=== PATIENT | female | born 1935 | race Caucasian/White ===

== ENCOUNTER 2018-06-08 16:26 | Outpatient (CLI) | payer MEDICARE ==
--- NOTE | 2018-06-08 18:21 | RAD ---
LEFT HIP TWO VIEWS: 06/08/18 INDICATION: Pain of left hip. FINDINGS: There is obliteration of the joint spaces of the left hip without significant osteophytosis. There is mild subchondral sclerosis and cyst formation. Scattered degenerative change of the imaged pelvis pr esent. IMPRESSION: Prominent joint space narrowing of the left hip. No significant osteophytosis. Inflammatory arthropat hy is suggested on the basis of imaging findings. Correlate clinically. POS: C
--- NOTE | 2018-06-08 18:24 | RAD ---
RIGHT HIP TWO VIEWS: 06/08/18 INDICATION: Pain right hip. No prior comparison. FINDINGS: There is obliteration of joint space without significant osteophytosis. There is mild subchondral scl erosis and degenerative cyst formation. Scattered degenerative change of the pelvis is seen. There ar e metallic sutures overlying the pelvis. IMPRESSION: Prominent joint space loss without significant bone forming component and therefore an inflammatory a rthropathy is favored. Recommend clinical correlation in this regard. No pathologic fracture. POS: C
== END 2018-06-08 16:27 | disposition home or self-care (01) ==
LOC: RAD 16:26
PROVIDERS: ATTEND Internal Medicine Rheumatology
DX: M25.551 Pain in right hip (principal); M25.552 Pain in left hip; M16.12 Unilateral primary osteoarthritis, left hip

== ENCOUNTER 2018-10-13 12:59 | Outpatient (CLI) | payer MEDICARE ==
--- NOTE | 2018-10-13 13:45 | RAD ---
EXAM: 3 views of the lumbosacral spine HISTORY: Low back pain COMPARISON: None FINDINGS: 3 views of the lumbosacral spine shows normal height and alignment of the vertebral bodies without fracture or subluxation. Alignment is unchanged with flexion and extension. There is intervertebral disc space narrowing at L4/5. Small osteophytes are seen throughout the lumbar spine. Posterior facet arthrosis is seen in the lower lumbosacral spine. Vascular calcifications are seen in the aorta. IMPRESSION: No significant lumbar spine abnormality.
--- NOTE | 2018-10-13 14:39 | MRI ---
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 Large bilateral acetabular osteophytes. Osseous remodeling of both femoral heads. Large subcortical cysts of both femoral heads. There is intraosseous cyst formation extending into both ileum Mild stress edema of both femoral necks and intertrochanteric portions of both femurs. Mild degenerative changes of pubic symphysis. Severe degenerative changes lower lumbar spine. SI join ts unremarkable. Sacrum is intact. Labrum: There is maceration of both labrum with no normal labral tissue remaining. Soft tissues: There is a large bilateral joint effusions, degenerative in nature, with extensive syno vitis. The hamstring tendons demonstrate high-grade undersurface tearing of both the common hamstring and se mimembranosus tendons from both ischial tuberosities. There is also high-grade partial tearing of both the right and left radius medial tendons. Intrapelvic soft tissues are unremarkable. Impression: Severe degenerative changes of both hips with complete cartilage loss, maceration of the labrum, articular surface remodeling, and large subcortical cysts. Evaluation for bilateral hip arthroplasty is recommended.
== END 2018-10-13 13:00 | disposition home or self-care (01) ==
LOC: SCSMRI 12:59
PROVIDERS: ATTEND Anesthesiology Pain Medicine
DX: M87.059 Idiopathic aseptic necrosis of unspecified femur (principal); M43.16 Spondylolisthesis, lumbar region; M16.0 Bilateral primary osteoarthritis of hip
CPT/HCPCS: 72100; 72195

== ENCOUNTER 2018-11-17 11:51 | Outpatient (CLI) | payer MEDICARE ==
[2018-11-17 14:21] LABS: #Basophils 0.1 thou/uL (0.0-0.2); #Eosinphils 0.4 thou/uL (0.0-0.7); #Lymphocytes 1.9 thou/uL (1.20-3.40); #Monocytes 0.9 thou/uL (0.11-0.59); #Neutrophils 7.6 thou/uL (1.40-6.50); %Basophils 0.9 % (0.0-1.0); %Eosinophils 3.4 % (0.0-10.0); %Lymphocytes 17.1 % (21.0-51.0); %Monocytes 8.5 % (0.0-10.0); %Neutrophils 70.1 % (42.0-75.0); Hemoglobin 13.4 g/dL (12.0-16.0); Mean Corpuscular HGB CONC 32.8 g/dL (32.0-36.0); Mean Corpuscular Hemoglobin 31.5 pg (27.0-31.0); Mean Corpuscular Volume 96.2 fL (78.0-98.0); Mean Platelet Volume 7.2 fL (7.4-10.4); Platelet Count 282 thou/uL (130-400); RBC Distribution Width 11.6 % (11.5-14.5); Red Blood Cell (RBC) Count 4.25 mill/uL (4.20-5.40); White Blood Cell (WBC) Count 10.9 thou/uL (4.8-10.8)
[2018-11-17 14:29] LABS: PTT 28.7 SEC (22.9-36.1); Prothrombin Time 13.4 SEC (12.0-14.7)
[2018-11-17 14:32] LABS: Bilirubin Negative (Negative); Blood, Urine Negative (Negative); Clarity CLEAR (Clear); Glucose, Urine (Dipstick) Negative (Negative); Leukocyte Negative (Negative); Nitrite Negative (Negative); Protein, Urine (Dipstick) Negative (Neg-Trace); Specific Gravity, Urine 1.005 (1.002-1.036); Urobilinogen 0.2 mg/dL (0.2-1.0); pH, Urine 5.5 (5.0-9.0)
[2018-11-17 14:43] LABS: Anion Gap 16 mmol/L (10-20); BUN (Urea Nitrogen) 25 mg/dL (9.8-20.1); Calc. Creatinine Clearance 0 mL/min (70-130); Calcium 8.9 mg/dL (7.8-10.44); Carbon Dioxide 24 mmol/L (23-31); Chloride 102 mmol/L (98-107); Estimated GFR-MDRD 83; Glucose 87 mg/dL (83-110); Potassium 4.2 mmol/L (3.5-5.1); Sodium 138 mmol/L (136-145)
[2018-11-17 15:00] LABS: Bacteria/HPF None Seen HPF (None Seen); Hyaline Casts/LPF NONE SEEN LPF (0-3 Hyaline); RBC/HPF None Seen HPF (0-3); Squamous Epithelial None Seen HPF (0-3); WBC/HPF None Seen HPF (0-3)
== END 2018-11-17 11:52 | disposition home or self-care (01) ==
LOC: LABBT 11:51
PROVIDERS: ATTEND Orthopaedic Surgery
DX: Z01.818 Encounter for other preprocedural examination (principal); M16.0 Bilateral primary osteoarthritis of hip
CPT/HCPCS: 80048; 81001; 85025; 85610; 85730; 87081; 93005; 93010

== ENCOUNTER 2018-11-17 12:30 | Inpatient (IN) | payer MEDICARE ==
[2018-11-29] MEDS ORDERED: Tranexamic Acid 1,000 MG/10 ML VIAL ONE (08:25)
[2018-11-29] MEDS ORDERED: Sodium Chloride 0.9% 100 ML ONE (08:25)
[2018-11-29] MEDS ORDERED: Zolpidem Tartrate 5 MG TAB PO PRN ×2 (09:09→10:30)
[2018-11-29] MEDS ORDERED: diphenhydrAMINE 25 MG CAP PO PRN ×2 (09:09→10:30)
[2018-11-29] MEDS ORDERED: Fentanyl 100 MCG/2 ML VIAL SLOW IVP PRN (09:09)
[2018-11-29] MEDS ORDERED: HYDROcodone/Acetaminophen 10/325 mg Tablet PO PRN (09:09)
[2018-11-29] MEDS ORDERED: Promethazine HCl 25 MG/ML VIAL IM PRN ×3 (09:09→12:23)
[2018-11-29] MEDS ORDERED: Acetaminophen 325 MG TAB PO PRN (09:09)
[2018-11-29] MEDS ORDERED: Ondansetron PF 4 MG/2 ML Vial IVP PRN ×2 (09:09→10:30)
[2018-11-29] MEDS ORDERED: Fentanyl 100 MCG/2 ML VIAL ONE ×2 (09:32→09:42)
[2018-11-29] MEDS ORDERED: Midazolam HCl 2 mg/2 ml Vial ONE (09:42)
[2018-11-29] MEDS ORDERED: Naloxone HCl 0.4 mg/ml Vial IVP PRN (10:30)
[2018-11-29] MEDS ORDERED: Naloxone HCl 0.4 mg/ml Vial IV PRN (10:30)
[2018-11-29] MEDS ORDERED: traMADol HCl 50 MG TAB PO PRN ×2 (10:30)
[2018-11-29] MEDS ORDERED: diphenhydrAMINE 50 MG/ML VIAL IVP PRN (10:30)
[2018-11-29] MEDS ORDERED: Hydrocerin (Eucerin) Cream 120 gm Jar TOP PRN (10:30)
[2018-11-29] MEDS ORDERED: diphenhydrAMINE 50 MG/ML VIAL IM PRN (10:30)
[2018-11-29] MEDS ORDERED: Promethazine HCl 25 MG SUPP PR PRN (10:30)
[2018-11-29] MEDS ORDERED: Bupivacaine 0.25% 10 ML VIAL EPIDURAL PRN (10:30)
[2018-11-29] MEDS ORDERED: HYDROcodone/Acetaminophen 5/325 mg Tablet PO PRN (10:30)
[2018-11-29] MEDS ORDERED: Bupivacaine/Epinephrine 0.25% 30 ML VIAL ONE (11:09)
[2018-11-29] MEDS ORDERED: Ondansetron HCl/PF 4 MG/2 ML Vial IVP PRN (12:23)
[2018-11-29] MEDS ORDERED: Promethazine HCl 25 MG/ML VIAL SLOW IVP PRN (12:23)
--- NOTE | 2018-11-29 13:03 | RAD ---
Radiograph right hip 2 views HISTORY: Status post surgery FINDINGS: Metallic acetabular prosthesis articulates with metallic femoral head and neck prosthesis. IMPRESSION: Status post total right hip replacement arthroplasty.
[2018-11-29] MEDS: Ketorolac Tromethamine 30 MG/ML VIAL IVP SCH ×3 (15:09→23:19)
[2018-11-29] MEDS: Senokot S 8.6-50 MG TAB PO SCH ×2 (15:09→19:40)
[2018-11-29] MEDS: CEFAZOLIN 2 GM in Premix Bag 1 BAG IVPB SCH (18:14)
[2018-11-29] MEDS: Ferrous Gluconate 324 MG TAB PO SCH (19:40)
[2018-11-29] MEDS: Aspirin 81 mg Enteric Coated Tablet PO SCH (20:30)
--- NOTE | 2018-11-29 21:41 | PDOC.PN ---
- Subjective Encounter Start Date: 11/29/18 Encounter Start Time: 18:30 Patient seen and examined for med mngt. Follow Dr Collette Barney. Pain controlled. No CP/SOB. No new complaints. - Objective MAR Reviewed: Yes Vital Signs & Weight: Vital Signs (12 hours) Temp Pulse Resp BP Pulse Ox 11/29/18 20:43 99.4 F 100 16 125/76 94 L 11/29/18 13:20 97.4 F L 94 18 118/57 L 98 Weight Weight 155 lb EKG Reviewed by me: Yes (SR) Phys Exam - Physical Examination Constitutional: NAD Respiratory: no wheezing, no rhonchi Cardiovascular: RRR, no rub Gastrointestinal: soft, non-tender, positive bowel sounds Musculoskeletal: no edema Neurological: moves all 4 limbs Dx/Plan - Plan DVT proph w/SCDs IMPRESSION: Hypothyrodism CKD 2 DJD Chronic pain syndrome PLAN: continue Levothyroxine Avoid Nephrotoxic meds Cont current meds as below Full code. DPOA - self/family Laboratory Tests 11/17/18 11/17/18 13:05 13:05 WBC 10.9 H Hgb 13.4 Sodium 138 Creatinine 0.68 Review of Systems - Review of Systems Respiratory: negative: Cough, Dry, Shortness of Breath, Hemoptysis, SOB with Excertion, Pleuritic Pain, Sputum, Wheezing Cardiovascular: negative: chest pain, palpitations, orthopnea, paroxysmal nocturnal dyspnea, edema, light headedness, other Gastrointestinal: negative: Nausea, Vomiting, Abdominal Pain, Diarrhea, Constipation, Melena, Hematochezia, Other - Medications/Allergies Allergies/Adverse Reactions: Allergies Allergy/AdvReac Type Severity Reaction Status Date / Time No Known Allergies Allergy Unverified 11/17/18 12:30 Medications: Current Medications Acetaminophen (Tylenol) 650 mg PO Q4H PRN PRN Reason: Headache/Fever or Pain Hydrocodone Bitart/Acetaminophen ([place] 5/325) 1 tab PO Q4H PRN PRN Reason: Mild Pain 1-3 Hydrocodone Bitart/Acetaminophen ([place] 5/325) 2 tab PO Q4H PRN PRN Reason: For Moderate Pain 4-6 Aspirin (Ecotrin) 81 mg PO BID [facility] Last Admin: 11/29/18 20:30 Dose: 81 mg Cyclobenzaprine HCl (Flexeril) 5 mg PO DAILY [facility] Diphenhydramine HCl (Benadryl) 25 mg PO Q6H PRN PRN Reason: Itching Diphenhydramine HCl (Benadryl) 25 mg PO Q3H PRN PRN Reason: Itching Diphenhydramine HCl (Benadryl) 25 mg IM Q3H PRN PRN Reason: Itching Diphenhydramine HCl (Benadryl) 25 mg IVP Q3H PRN PRN Reason: Itching Emollient Cream (Hydrocerin Cream) 0 gm TOP PRN PRN PRN Reason: Itching Ferrous Gluconate (Fergon) 324 mg PO BID [facility] Last Admin: 11/29/18 19:40 Dose: Not Given Cefazolin Sodium/Dextrose 2 gm (/ Device) 50 mls @ 100 mls/hr IVPB 0030,0830, 1630 [facility] Stop: 11/30/18 00:59 Last Admin: 11/29/18 18:14 Dose: 50 mls Fentanyl Citrate (Fentanyl/Bupivacaine) 100 mls @ 6 mls/hr EPIDURAL INF [facility] Iron/Minerals/Multivitamins (Theragran M) 1 tab PO DAILY [facility] Ketorolac Tromethamine (Toradol) 15 mg IVP Q6HR [facility] Stop: 12/01/18 06:01 Last Admin: 11/29/18 18:12 Dose: 15 mg Levothyroxine Sodium (Synthroid) 112 mcg PO 0600 [facility] Naloxone HCl (Narcan) 0.2 mg IV Q5MIN PRN PRN Reason: RR <=8 OR OBTUNDED/UNAROUSABLE Naloxone HCl (Narcan) 0.1 mg IVP Q15MIN PRN PRN Reason: URINARY RETENTION Ondansetron HCl (Zofran) 4 mg IVP Q6H PRN PRN Reason: Nausea/Vomiting Ondansetron HCl (Zofran) 4 mg IVP Q6H PRN PRN Reason: Nausea/Vomiting Promethazine HCl (Phenergan) 12.5 mg IM Q4H PRN PRN Reason: Nausea/Vomiting Promethazine HCl (Phenergan) 12.5 mg IM Q4H PRN PRN Reason: Nausea Promethazine HCl (Phenergan Suppository) 25 mg SD Q4H PRN PRN Reason: Nausea/Vomiting Raloxifene HCl (Evista) 60 mg PO DAILY [facility] Senna/Docusate Sodium (Senokot S) 2 tab PO BID [facility] Last Admin: 11/29/18 19:40 Dose: Not Given Sodium Chloride (Flush - Normal Saline) 10 ml IVF PRN PRN PRN Reason: Saline Flush Tramadol HCl (Ultram) 50 mg PO Q6H PRN PRN Reason: Mild Pain 1-3 Tramadol HCl (Ultram) 100 mg PO Q6H PRN PRN Reason: Moderate Pain 4-6 Zolpidem Tartrate (Ambien) 5 mg PO HSPRN PRN PRN Reason: Insomnia Zolpidem Tartrate (Ambien) 5 mg PO HSPRN PRN PRN Reason: Insomnia
[2018-11-30] MEDS: CEFAZOLIN 2 GM in Premix Bag 1 BAG IVPB SCH (02:16)
[2018-11-30 05:15] LABS: Hemoglobin 10.4 g/dL (12.0-16.0); Mean Corpuscular HGB CONC 33.2 g/dL (32.0-36.0); Mean Corpuscular Volume 96.5 fL (78.0-98.0); Mean Platelet Volume 6.8 fL (7.4-10.4); Platelet Count 250 thou/uL (130-400); RBC Distribution Width 11.5 % (11.5-14.5); Red Blood Cell (RBC) Count 3.26 mill/uL (4.20-5.40); White Blood Cell (WBC) Count 11.8 thou/uL (4.8-10.8)
[2018-11-30] MEDS: Fentanyl 5 mcg/Bup 0.075% Cadd 100 ML EPIDURAL SCH ×2 (05:21→22:31)
[2018-11-30] MEDS: Levothyroxine Sodium 112 MCG TAB PO SCH (05:21)
[2018-11-30] MEDS: Ketorolac Tromethamine 30 MG/ML VIAL IVP SCH ×3 (05:21→18:27)
--- NOTE | 2018-11-30 08:26 | OP ---
DATE OF PROCEDURE: 11/29/2018 PREOPERATIVE DIAGNOSIS: Degenerative joint disease, right hip. POSTOPERATIVE DIAGNOSES: Degenerative joint disease, right hip, and abductors avulsion. PROCEDURES: Right total hip arthroplasty using a [employer] Accolade II, #5 stem with a -5, 36 head, 50 mm PSL cup with a 36 mm liner. HAZARDOUS MATERIALS DRIVER: Blair. BLOOD LOSS: 150. SPECIMENS: None. DRAINS: None. COMPLICATIONS: None. PROCEDURE IN DETAIL: After informed consent was obtained in the preoperative holding area, the patient was taken to the operative suite where general anesthesia was induced. The patient was then positioned in the lateral decubitus position. The hip was then prepped and draped in usual sterile fashion. The patient received preoperative antibiotics. Prior to incision, time-out was called and all members of the surgical team agreed upon site, surgeon, and patient. After this, a longitudinal incision was made directly over the trochanter, noted by palpation extending 2 fingerbreadths above and below the trochanter. The deeper subcutaneous layer was undermined with Bovie electrocautery. The iliotibial band was encountered and incised sharply and the plane below this was developed bluntly. A Charnley retractor was placed to hold this opened. The lateral aspect of the trochanter and the abductor muscles were encountered and then reflected anteriorly off the trochanter using Bovie electrocautery. Once this was completed, the anterior capsule was then encountered and identified and copious capsulotomy was carried out, exposing the femoral neck and head. Dislocation maneuver was then performed and an in situ provisional neck cut was then made using the oscillating saw. Attention was then turned to acetabular preparation and sequential reaming was carried out up to the appropriate diameter. A trial was then malleted into place with good firm resistance and no pullout. The permanent acetabular shell was then malleted squarely into place, as was the appropriate liner. Once completed, the wound was copiously irrigated and attention was then turned to femoral preparation. Flexion and external rotation were performed of the exposed thigh and femoral elevators were then placed at the proximal aspect of the wound. Canal finder was used to establish the length of the canal and sequential reaming was carried out, followed by broaching. Once the appropriate stability was established with the trial broaches with flexion, extension and rotational stability, we did trial with neutral and 2 mm offset incremental necks. Once the appropriate size was decided upon, with good stability noted with flexion, extension, internal and external rotation and shuck being negative, we removed the femoral trial broach and malletted into place the permanent prosthesis with good firm fit, which was also stable to rotation. Again, the hip felt very stable to flexion, extension, internal and external rotation. Leg lengths appeared near anatomic clinically and we were quite happy with prosthesis placement. Copious irrigation was then carried out through the entirety of the wound. Primary closure of the abductors was accomplished with interrupted #2 Vicryl [id number] stitches and the IT band was then closed with interrupted #2 Vicryl, oversewn with a #2 running barbed Quill stitch. Subcutaneous fascia was closed with running barbed Quill stitch and a subcuticular Monocryl barbed Quill stitch was used for skin closure and augmented with skin cement. A sterile dressing was applied. The procedure was terminated without any complication. All counts were correct. The patient was awakened in the operative suite and taken to the recovery room in stable condition. Job ID: [id number]
[2018-11-30] MEDS: Aspirin 81 mg Enteric Coated Tablet PO SCH ×2 (08:30→20:14)
[2018-11-30] MEDS: Cyclobenzaprine 10 MG TAB PO SCH (08:30)
[2018-11-30] MEDS: Ferrous Gluconate 324 MG TAB PO SCH ×2 (08:31→20:14)
[2018-11-30] MEDS: Senokot S 8.6-50 MG TAB PO SCH ×2 (08:32→20:14)
[2018-11-30] MEDS: Multivitamin W/ Minerals 1 TAB PO SCH (08:32)
--- NOTE | 2018-11-30 08:40 | PRG ---
DATE OF SERVICE: 11/30/2018 SUBJECTIVE: Mohini is an 83-year-old white female, postop day 1 from right total hip arthroplasty. She is sitting up, eating, and in good spirits this morning. She has no complaints. She was able to ambulate approximately 30 feet yesterday evening. OBJECTIVE: VITAL SIGNS: Temperature 100, pulse 100, respiratory rate 16, and blood pressure 125/56. GENERAL: She is alert, oriented, responsive, and appropriate with examiner. SKIN: Her incision is clean. No strikethrough. EXTREMITIES: There is no malrotation or shortening of the extremity. LABORATORY DATA: Hemoglobin and hematocrit of 10.4 and 31.5. IMPRESSION: 1. This is an 83-year-old white female, postop day #1 right total hip arthroplasty. 2. Anemia. PLAN: Continue current care. Probable discharge on Wednesday. Job ID: [id number]
[2018-11-30 13:01] VITALS: BMI 29.2
[2018-12-01] MEDS: Ketorolac Tromethamine 30 MG/ML VIAL IVP SCH ×2 (00:02→05:25)
[2018-12-01 04:39] LABS: Hemoglobin 9.9 g/dL (12.0-16.0); Mean Corpuscular HGB CONC 33.4 g/dL (32.0-36.0); Mean Corpuscular Hemoglobin 32.1 pg (27.0-31.0); Mean Corpuscular Volume 96.1 fL (78.0-98.0); Mean Platelet Volume 6.7 fL (7.4-10.4); Platelet Count 237 thou/uL (130-400); RBC Distribution Width 11.5 % (11.5-14.5); Red Blood Cell (RBC) Count 3.08 mill/uL (4.20-5.40); White Blood Cell (WBC) Count 11.4 thou/uL (4.8-10.8)
[2018-12-01] MEDS: Levothyroxine Sodium 112 MCG TAB PO SCH (05:25)
[2018-12-01] MEDS: Aspirin 81 mg Enteric Coated Tablet PO SCH ×2 (09:06→20:40)
[2018-12-01] MEDS: Ferrous Gluconate 324 MG TAB PO SCH ×2 (09:07→20:40)
[2018-12-01] MEDS: Senokot S 8.6-50 MG TAB PO SCH ×2 (09:12→20:40)
[2018-12-01] MEDS: Multivitamin W/ Minerals 1 TAB PO SCH (09:15)
[2018-12-01] MEDS: Cyclobenzaprine 10 MG TAB PO SCH (09:17)
--- NOTE | 2018-12-01 09:29 | PRG ---
DATE OF SERVICE: 12/01/2018 SUBJECTIVE: Mohini is an 83-year-old white female, postop day 2 from right total hip arthroplasty. She is doing relatively well. She has been ambulating with therapy, distances of 135 to 350 feet with standby assist. OBJECTIVE: VITAL SIGNS: Temperature 98.5; pulse 92; respiratory rate 16, unlabored; O2 saturation 96% on room air; and blood pressure is 123/69. NEUROLOGIC: She is alert, oriented, responsive, appropriate with examiner. Grossly nonfocal. Converses easily. Her incision is clean. No strike through. There is no malrotation or shortening of the extremity involved. LABORATORY DATA: Hemoglobin and hematocrit are 9.9 and 29.6. IMPRESSION: 1. An 83-year-old female on postop day 2, right total hip arthroplasty. 2. Anemia. PLAN: Continue current care. Probable discharge home tomorrow. Job ID: [id number]
[2018-12-01] MEDS: HYDROcodone/Acetaminophen 5/325 mg Tablet PO PRN ×3 (14:23→22:47)
[2018-12-02] MEDS: HYDROcodone/Acetaminophen 5/325 mg Tablet PO PRN ×2 (04:28→08:37)
[2018-12-02] MEDS: Levothyroxine Sodium 112 MCG TAB PO SCH (06:14)
[2018-12-02 07:59] VITALS: TEMP 98.2
[2018-12-02] MEDS: Senokot S 8.6-50 MG TAB PO SCH (08:34)
[2018-12-02] MEDS: Cyclobenzaprine 10 MG TAB PO SCH (08:35)
[2018-12-02] MEDS: Ferrous Gluconate 324 MG TAB PO SCH (08:36)
[2018-12-02] MEDS: Aspirin 81 mg Enteric Coated Tablet PO SCH (08:36)
[2018-12-02] MEDS: Multivitamin W/ Minerals 1 TAB PO SCH (08:36)
[2018-12-02 11:45] VITALS: BP 104/63
== END 2018-12-02 12:17 | disposition home or self-care (01) | DRG 470 ==
LOC: SURG A 11-29 07:54 → SJJU 11-29 13:33
PROVIDERS: ADMIT Orthopaedic Surgery; ATTEND Orthopaedic Surgery
PROC: 0SR90J9 Replacement of Right Hip Joint with Synthetic Substitute, Cemented, Open Approach (ICD-10-PCS; principal; 2018-11-29)
DX: M16.11 Unilateral primary osteoarthritis, right hip (principal); E03.9 Hypothyroidism, unspecified; N18.2 Chronic kidney disease, stage 2 (mild); G89.4 Chronic pain syndrome; D64.9 Anemia, unspecified
CPT/HCPCS: 36415; 85027; C1776; J0690; J1885; J2250; J2405; J3010; J3370; J3490; S0020

== ENCOUNTER 2019-03-02 09:43 | Outpatient (CLI) | payer MEDICARE ==
[2019-03-02 14:03] LABS: #Basophils 0.1 thou/uL (0.0-0.2); #Eosinphils 0.2 thou/uL (0.0-0.7); #Monocytes 0.6 thou/uL (0.11-0.59); #Neutrophils 6.1 thou/uL (1.40-6.50); %Basophils 0.8 % (0.0-1.0); %Eosinophils 2.1 % (0.0-10.0); %Lymphocytes 22.4 % (21.0-51.0); %Monocytes 6.9 % (0.0-10.0); %Neutrophils 67.7 % (42.0-75.0); Hemoglobin 13.6 g/dL (12.0-16.0); Mean Corpuscular HGB CONC 33.5 g/dL (32.0-36.0); Mean Corpuscular Hemoglobin 31.4 pg (27.0-31.0); Mean Corpuscular Volume 93.9 fL (78.0-98.0); Platelet Count 300 thou/uL (130-400); RBC Distribution Width 12.8 % (11.5-14.5); Red Blood Cell (RBC) Count 4.33 mill/uL (4.20-5.40)
[2019-03-02 14:10] LABS: Prothrombin Time 13.5 SEC (12.0-14.7)
[2019-03-02 14:25] LABS: Anion Gap 13 mmol/L (10-20); BUN (Urea Nitrogen) 25 mg/dL (9.8-20.1); Calc. Creatinine Clearance 0 mL/min (70-130); Calcium 8.9 mg/dL (7.8-10.44); Carbon Dioxide 25 mmol/L (23-31); Chloride 104 mmol/L (98-107); Estimated GFR-MDRD 79; Glucose 87 mg/dL (83-110); Sodium 138 mmol/L (136-145)
== END 2019-03-02 09:44 | disposition home or self-care (01) ==
LOC: LABBT 09:43
PROVIDERS: ATTEND Orthopaedic Surgery
DX: Z01.812 Encounter for preprocedural laboratory examination (principal); M16.12 Unilateral primary osteoarthritis, left hip
CPT/HCPCS: 80048; 85025; 85610; 87081

== ENCOUNTER 2019-03-02 14:30 | Inpatient (IN) | payer MEDICARE ==
[2019-03-02 12:24] VITALS: BMI 28.5
[2019-03-14] MEDS ORDERED: Tranexamic Acid 1,000 MG/10 ML VIAL ONE (10:03)
[2019-03-14] MEDS ORDERED: Sodium Chloride 0.9% 100 ML ONE (10:03)
[2019-03-14] MEDS ORDERED: Zolpidem Tartrate 5 MG TAB PO PRN ×2 (11:27→12:30)
[2019-03-14] MEDS ORDERED: Fentanyl 100 MCG/2 ML VIAL SLOW IVP PRN (11:27)
[2019-03-14] MEDS ORDERED: Acetaminophen 325 MG TAB PO PRN (11:27)
[2019-03-14] MEDS ORDERED: Morphine 2 MG/ML SYRINGE SLOW IVP PRN (11:27)
[2019-03-14] MEDS ORDERED: Promethazine HCl 25 MG/ML VIAL IM PRN ×3 (11:27→14:13)
[2019-03-14] MEDS ORDERED: Ondansetron PF 4 MG/2 ML Vial IVP PRN ×2 (11:27→12:30)
[2019-03-14] MEDS ORDERED: Ketorolac Tromethamine 30 MG/ML VIAL IVP PRN ×2 (11:27→12:30)
[2019-03-14] MEDS ORDERED: HYDROcodone/Acetaminophen 10/325 mg Tablet PO PRN ×2 (11:27)
[2019-03-14] MEDS ORDERED: diphenhydrAMINE 25 MG CAP PO PRN ×2 (11:27→12:30)
[2019-03-14] MEDS ORDERED: Midazolam HCl 2 mg/2 ml Vial ONE (11:45)
[2019-03-14] MEDS ORDERED: Fentanyl 100 MCG/2 ML VIAL ONE ×2 (11:46→13:08)
[2019-03-14] MEDS ORDERED: Bupivacaine 0.25% 10 ML VIAL EPIDURAL PRN (12:30)
[2019-03-14] MEDS ORDERED: diphenhydrAMINE 50 MG/ML VIAL IM PRN (12:30)
[2019-03-14] MEDS ORDERED: Naloxone HCl 0.4 mg/ml Vial IV PRN (12:30)
[2019-03-14] MEDS ORDERED: diphenhydrAMINE 50 MG/ML VIAL IVP PRN (12:30)
[2019-03-14] MEDS ORDERED: traMADol HCl 50 MG TAB PO PRN ×2 (12:30)
[2019-03-14] MEDS ORDERED: Naloxone HCl 0.4 mg/ml Vial IVP PRN (12:30)
[2019-03-14] MEDS ORDERED: Promethazine HCl 25 MG SUPP PR PRN (12:30)
[2019-03-14] MEDS ORDERED: fentaNYL Citrate/PF 500 MCG, Bupivacaine 10 ML in Sodium Chloride 0.9% 80 ML EPIDURAL SCH (12:30)
[2019-03-14] MEDS ORDERED: Hydrocerin (Eucerin) Cream 120 gm Jar TOP PRN (12:30)
[2019-03-14] MEDS ORDERED: Phenylephrine HCL 10 MG/ML VIAL ONE (13:09)
[2019-03-14] MEDS ORDERED: Promethazine HCl 25 MG/ML VIAL SLOW IVP PRN (14:13)
[2019-03-14] MEDS ORDERED: Ondansetron HCl/PF 4 MG/2 ML Vial IVP PRN (14:13)
[2019-03-14] MEDS ORDERED: Bupivacaine 0.5% 10 ML VIAL ONE (15:11)
--- NOTE | 2019-03-14 16:14 | RAD ---
Left hip 2 views HISTORY: Arthritis. Hip replacement. FINDINGS: Total hip prosthesis in place. No perihardware lucency. Overlying soft tissue gas. IMPRESSION: Left hip prosthesis is in good radiographic position.
[2019-03-14] MEDS: Sodium Chloride 0.9% 1,000 ML IV SCH ×2 (17:25→22:08)
[2019-03-14] MEDS ORDERED: CEFAZOLIN 2 GM in Premix Bag 1 BAG IVPB SCH (18:00)
[2019-03-14] MEDS: Aspirin 81 mg Enteric Coated Tablet PO SCH (20:27)
--- NOTE | 2019-03-14 20:53 | OP ---
DATE OF PROCEDURE: 03/14/2019 PREOPERATIVE DIAGNOSIS: End-stage bicompartmental osteoarthritis, left hip. POSTOPERATIVE DIAGNOSIS: End-stage bicompartmental osteoarthritis, left hip. OPERATIVE PROCEDURE: Press-fit left total hip arthroplasty. ASSOCIATE PROFESSOR OF CHURCH MUSIC: Jw Ko PA-C. ANESTHESIA: General via endotracheal tube augmented with indwelling epidural. COMPONENTS USED: [employer] Accolade II press-fit hip stem with a Trident PSL 50 mm cluster press-fit acetabular shell, 10-degree polyethylene fixed bearing insert, and a neutral offset V40 metallic femoral head. FINDINGS: End-stage severe degenerative bicompartmental disease, [id number] arthrosis, periarticular osteophyte formation, large serous fusion, hypertrophic synovium. DRAINS: None. SPECIMENS: None. COMPLICATIONS: None. COUNTS: Correct. INPUT: 800 mL of crystalloid. OUTPUT: 200 mL of clear yellow urine. INDICATION FOR SURGERY: Mohini is an 83-year-old white female, who has had progressive left hip, groin, thigh pain and problem with standing and walking for the last 5 to 7 years. She has failed conservative measures and elected to proceed with total hip arthroplasty as definitive treatment of her pain. PROCEDURE IN DETAIL: After informed consent was obtained in the preoperative holding area, the patient was taken to the operative suite where general anesthesia was induced. The patient was then positioned in the lateral decubitus position. The hip was then prepped and draped in usual sterile fashion. The patient received preoperative antibiotics. Prior to incision, time-out was called and all members of the surgical team agreed upon site, surgeon, and patient. After this, a longitudinal incision was made directly over the trochanter, noted by palpation extending 2 fingerbreadths above and below the trochanter. The deeper subcutaneous layer was undermined with Bovie electrocautery. The iliotibial band was encountered and incised sharply and the plane below this was developed bluntly. A Charnley retractor was placed to hold this opened. The lateral aspect of the trochanter and the abductor muscles were encountered and then reflected anteriorly off the trochanter using Bovie electrocautery. Once this was completed, the anterior capsule was then encountered and identified and copious capsulotomy was carried out, exposing the femoral neck and head. Dislocation maneuver was then performed and an in situ provisional neck cut was then made using the oscillating saw. Attention was then turned to acetabular preparation and sequential reaming was carried out up to the appropriate diameter. A trial was then malleted into place with good firm resistance and no pullout. The permanent acetabular shell was then malleted squarely into place, as was the appropriate liner. Once completed, the wound was copiously irrigated and attention was then turned to femoral preparation. Flexion and external rotation were performed of the exposed thigh and femoral elevators were then placed at the proximal aspect of the wound. Canal finder was used to establish the length of the canal and sequential reaming was carried out, followed by broaching. Once the appropriate stability was established with the trial broaches with flexion, extension and rotational stability, we did trial with neutral and 2 mm offset incremental necks. Once the appropriate size was decided upon, with good stability noted with flexion, extension, internal and external rotation and shuck being negative, we removed the femoral trial broach and malletted into place the permanent prosthesis with good firm fit, which was also stable to rotation. Again, the hip felt very stable to flexion, extension, internal and external rotation. Leg lengths appeared near anatomic clinically and we were quite happy with prosthesis placement. Copious irrigation was then carried out through the entirety of the wound. Primary closure of the abductors was accomplished with interrupted #2 Vicryl [id number] stitches and the IT band was then closed with interrupted #2 Vicryl, oversewn with a #2 running barbed Quill stitch. Subcutaneous fascia was closed with running barbed Quill stitch and a subcuticular Monocryl barbed Quill stitch was used for skin closure and augmented with skin cement. A sterile dressing was applied. The procedure was terminated without any complication. All counts were correct. The patient was awakened in the operative suite and taken to the recovery room in stable condition. Job ID: [id number]
[2019-03-14] MEDS: CEFAZOLIN 2 GM in Premix Bag 1 BAG IVPB SCH (22:02)
[2019-03-14] MEDS: HYDROcodone/Acetaminophen 5/325 mg Tablet PO PRN (23:26)
[2019-03-15] MEDS: CEFAZOLIN 2 GM in Premix Bag 1 BAG IVPB SCH (05:01)
[2019-03-15 05:20] LABS: Hemoglobin 11.4 g/dL (12.0-16.0); Mean Corpuscular HGB CONC 33.7 g/dL (32.0-36.0); Mean Corpuscular Hemoglobin 31.4 pg (27.0-31.0); Mean Corpuscular Volume 93.3 fL (78.0-98.0); Mean Platelet Volume 7.1 fL (7.4-10.4); Platelet Count 223 thou/uL (130-400); RBC Distribution Width 12.3 % (11.5-14.5); Red Blood Cell (RBC) Count 3.63 mill/uL (4.20-5.40); White Blood Cell (WBC) Count 11.5 thou/uL (4.8-10.8)
[2019-03-15] MEDS: Levothyroxine Sodium 112 MCG TAB PO SCH (06:30)
[2019-03-15] MEDS: Multivitamin W/ Minerals 1 TAB PO SCH (07:51)
[2019-03-15] MEDS: Aspirin 81 mg Enteric Coated Tablet PO SCH ×3 (07:51→22:27)
[2019-03-15] MEDS: Ferrous Gluconate 324 MG TAB PO SCH ×3 (07:51→22:27)
[2019-03-15] MEDS: Senokot S 8.6-50 MG TAB PO SCH ×3 (07:51→22:28)
--- NOTE | 2019-03-15 08:18 | PDOC.HOSPP ---
- Subjective Encounter Date: 03/14/19 Encounter Time: 19:30 Subjective: Patient seen and examined for med mngt. Follows Collette Gloria in [place]. Mild gen headache/sore throat. No CP or SOB. No new complaints. No overnight events - Objective Vital Signs & Weight: Vital Signs (12 hours) Temp Pulse Resp BP Pulse Ox 03/15/19 03:09 98.5 F 81 16 111/67 95 03/14/19 23:06 99.2 F 97 16 112/51 L 94 L 03/14/19 20:30 96 Weight Weight 156 lb I&O: 03/14/19 03/15/19 03/16/19 06:59 06:59 06:59 Intake Total 650 1620 Output Total 100 600 Balance 550 1020 Result Diagrams: 03/15/19 04:28 Additional Labs: Laboratory Tests 03/02/19 13:18 BUN 25 H Creatinine 0.71 EKG Reviewed by me: Yes (SR) Hospitalist ROS - Review of Systems Respiratory: denies: cough, dry, shortness of breath, hemoptysis, SOB with excertion, pleuritic pain, sputum, wheezing, other Cardiovascular: denies: chest pain, palpitations, orthopnea, paroxysmal noc. dyspnea, edema, light headedness, other Gastrointestinal: denies: nausea, vomiting, abdominal pain, diarrhea, constipation, melena, hematochezia, other - Medication Medications: Active Medications Generic Name Dose Route Start Last Admin Trade Name Freq PRN Reason Stop Dose Admin Acetaminophen 650 mg 03/14/19 11:27 03/14/19 18:08 Tylenol PO 650 mg Q4H PRN Administration Headache/Fever/Mild Pain (1-3) Hydrocodone Bitart/Acetaminophen 1 tab 03/14/19 12:30 03/14/19 23:26 [employer] 5/325 PO 1 tab Q4H PRN Administration Mild Pain 1-3 Aspirin 81 mg 03/14/19 21:00 03/15/19 07:51 Ecotrin PO 81 mg BID SHEN Administration Enoxaparin Sodium 40 mg 03/15/19 09:00 03/15/19 07:50 Lovenox SC 03/15/19 11:00 40 mg 0900 SHEN Administration Ferrous Gluconate 324 mg 03/15/19 09:00 03/15/19 07:51 Fergon PO 324 mg BID SHEN Administration Sodium Chloride 1,000 mls @ 100 mls/hr 03/14/19 11:30 03/14/19 22:08 Normal Saline 0.9% IV Not Given .Q10H SHEN Fentanyl Citrate 500 mcg/ 100 mls @ 6 mls/hr 03/14/19 12:30 03/15/19 06:30 Bupivacaine HCl 10 ml/ Sodium EPIDURAL 100 mls Chloride INF SHEN Administration As Directed Iron/Minerals/Multivitamins 1 tab 03/15/19 09:00 03/15/19 07:51 Theragran M PO 1 tab DAILY SHEN Administration Ketorolac Tromethamine 15 mg 03/14/19 12:30 03/15/19 00:31 Toradol IVP 03/17/19 12:31 15 mg Q6H PRN Administration Moderate Pain (4-6) Levothyroxine Sodium 112 mcg 03/15/19 06:00 03/15/19 06:30 Synthroid PO 112 mcg 0600 SHEN Administration Raloxifene HCl 60 mg 03/15/19 09:00 03/15/19 07:51 Evista PO 60 mg DAILY SHEN Administration Senna/Docusate Sodium 2 tab 03/15/19 09:00 03/15/19 07:51 Senokot S PO 2 tab BID SHEN Administration - Exam General Appearance: NAD Heart: RRR, no gallops Respiratory: CTAB, no rales Gastrointestinal: soft, non-tender, normal bowel sounds Extremities: no edema Hosp A/P - Plan Hypothyroidism CKD 2 DJD PLAN: Cont Levothyroxine PT/OT Cont supportive care Full code DPOA - self/family
[2019-03-15] MEDS ORDERED: Enoxaparin Sodium 40 MG/0.4 ML SYRINGE SC SCH (09:00)
[2019-03-15] MEDS ORDERED: Bupivacaine 10 ML in Sodium Chloride 0.9% 90 ML EPIDURAL SCH (13:15)
[2019-03-15] MEDS: HYDROcodone/Acetaminophen 5/325 mg Tablet PO PRN (13:26)
--- NOTE | 2019-03-15 13:26 | PRG ---
DATE OF SERVICE: 03/15/2019 SUBJECTIVE: Mohini is an 83-year-old female, postop day 1 from a left total hip arthroplasty. She is doing well. She has no complaints of pain and she is quite comfortable at this point. OBJECTIVE: VITAL SIGNS: Temperature 98.5, pulse 87, respiratory rate 16, and blood pressure is 122/67. GENERAL: She is alert and oriented to person, place, time, situation, responsive, appropriate with examiner. NEUROLOGIC: Grossly nonfocal. MUSCULOSKELETAL: Incision is clean and closed. No erythema. Neurovascularly intact in both lower extremities. No shortening or malrotation is appreciated. LABORATORY DATA: Her hemoglobin and hematocrit are 11.4 and 33.8. IMPRESSION: An 83-year-old female postop day 1 left total hip arthroplasty, doing well. PLAN: Continue current care. Consider discharge tomorrow or Wednesday. Job ID: [id number]
[2019-03-15] MEDS: Sodium Chloride 0.9% 1,000 ML IV SCH ×2 (15:15→18:50)
[2019-03-15] MEDS: Ketorolac Tromethamine 30 MG/ML VIAL IVP SCH (17:59)
--- NOTE | 2019-03-15 21:21 | PDOC.HOSPP ---
- Subjective Encounter Date: 03/15/19 Encounter Time: 12:30 Subjective: Patient seen and examined for med mngt. Pain controlled. No CP or SOB. No new complaints. No overnight events - Objective Vital Signs & Weight: Vital Signs (12 hours) Temp Pulse Resp BP Pulse Ox 03/15/19 19:21 98.3 F 82 16 104/61 96 03/15/19 15:33 98.2 F 100 14 123/71 94 L Weight Admit Weight 156 lb Weight 156 lb I&O: 03/14/19 03/15/19 03/16/19 06:59 06:59 06:59 Intake Total 650 1620 Output Total 100 1000 Balance 550 620 Result Diagrams: 03/15/19 04:28 Hospitalist ROS - Review of Systems Respiratory: denies: cough, dry, shortness of breath, hemoptysis, SOB with excertion, pleuritic pain, sputum, wheezing, other Cardiovascular: denies: chest pain, palpitations, orthopnea, paroxysmal noc. dyspnea, edema, light headedness, other - Medication Medications: Active Medications Generic Name Dose Route Start Last Admin Trade Name Freq PRN Reason Stop Dose Admin Acetaminophen 650 mg 03/14/19 11:27 03/14/19 18:08 Tylenol PO 650 mg Q4H PRN Administration Headache/Fever/Mild Pain (1-3) Hydrocodone Bitart/Acetaminophen 1 tab 03/14/19 12:30 03/15/19 13:26 [place] 5/325 PO 1 tab Q4H PRN Administration Mild Pain 1-3 Aspirin 81 mg 03/14/19 21:00 03/15/19 21:00 Ecotrin PO 81 mg BID SHEN Administration Ferrous Gluconate 324 mg 03/15/19 09:00 03/15/19 21:00 Fergon PO 324 mg BID SHEN Administration Sodium Chloride 1,000 mls @ 100 mls/hr 03/14/19 11:30 03/15/19 18:50 Normal Saline 0.9% IV Not Given .Q10H SHEN Bupivacaine HCl 10 ml/ Sodium 100 mls @ 6 mls/hr 03/15/19 13:15 03/15/19 14: 23 Chloride EPIDURAL 100 mls INF SHEN Administration Iron/Minerals/Multivitamins 1 tab 03/15/19 09:00 03/15/19 07:51 Theragran M PO 1 tab DAILY SHEN Administration Ketorolac Tromethamine 30 mg 03/15/19 18:00 03/15/19 17:59 Toradol IVP 03/16/19 18:01 30 mg Q6HR SHEN Administration Levothyroxine Sodium 112 mcg 03/15/19 06:00 03/15/19 06:30 Synthroid PO 112 mcg 0600 SHEN Administration Ondansetron HCl 4 mg 03/14/19 12:30 03/15/19 16:33 Zofran IVP 4 mg Q6H PRN Administration Nausea/Vomiting Raloxifene HCl 60 mg 03/15/19 09:00 03/15/19 07:51 Evista PO 60 mg DAILY SHEN Administration Senna/Docusate Sodium 2 tab 03/15/19 09:00 03/15/19 21:00 Senokot S PO 2 tab BID SHEN Administration - Exam General Appearance: NAD Neck: supple, no JVD Heart: RRR, no gallops Respiratory: CTAB, no rales Gastrointestinal: soft, non-tender, non-distended, normal bowel sounds Extremities: no edema Hosp A/P - Plan DVT proph w/SCDs Hypothyroidism CKD 2 DJD Osteoporosis PLAN: Cont Levothyroxine Cont supportive care Will sign off. Please call for questions.
[2019-03-16] MEDS: Ketorolac Tromethamine 30 MG/ML VIAL IVP SCH ×2 (00:01→06:00)
[2019-03-16] MEDS: Sodium Chloride 0.9% 1,000 ML IV SCH ×3 (04:39→23:59)
[2019-03-16] MEDS: Levothyroxine Sodium 112 MCG TAB PO SCH (06:00)
[2019-03-16 06:54] LABS: Hemoglobin 11.7 g/dL (12.0-16.0); Mean Corpuscular HGB CONC 33.7 g/dL (32.0-36.0); Mean Corpuscular Hemoglobin 31.4 pg (27.0-31.0); Mean Corpuscular Volume 93.3 fL (78.0-98.0); Mean Platelet Volume 6.9 fL (7.4-10.4); Platelet Count 197 thou/uL (130-400); RBC Distribution Width 12.1 % (11.5-14.5); Red Blood Cell (RBC) Count 3.72 mill/uL (4.20-5.40); White Blood Cell (WBC) Count 11.9 thou/uL (4.8-10.8)
[2019-03-16] MEDS: Ferrous Gluconate 324 MG TAB PO SCH ×2 (08:31→21:01)
[2019-03-16] MEDS: Multivitamin W/ Minerals 1 TAB PO SCH (08:31)
[2019-03-16] MEDS: Aspirin 81 mg Enteric Coated Tablet PO SCH ×2 (08:31→21:01)
[2019-03-16] MEDS: Senokot S 8.6-50 MG TAB PO SCH ×2 (08:32→21:01)
[2019-03-16] MEDS ORDERED: Ketorolac Tromethamine 30 MG/ML VIAL IVP PRN (10:12)
--- NOTE | 2019-03-16 10:48 | PRG ---
DATE OF SERVICE: 03/16/2019 SUBJECTIVE: Mohini is an 83-year-old female, postop day #2 from a left total hip arthroplasty. She is doing relatively well. Her pain has been controlled and she ambulated 250 feet yesterday. OBJECTIVE: VITAL SIGNS: Temperature 98.8, pulse 100, respiratory rate 16 and nonlabored, O2 saturation 96% on room air, and blood pressure 149/75. GENERAL: She is alert and oriented to person, place, time, and situation. Responsive and appropriate with examiner. NEUROLOGIC: Grossly nonfocal. EXTREMITIES: Incision is clean and closed. No malrotation or shortening. No strike through. Leg lengths in equal. LABORATORY DATA: Hemoglobin and hematocrit of 11.7 and 34.7. IMPRESSION: An 83-year-old female, postop day #2, left total hip arthroplasty, doing well. PLAN: Continue current care. Probable discharge home tomorrow. Job ID: [id number]
[2019-03-16] MEDS: HYDROcodone/Acetaminophen 5/325 mg Tablet PO PRN (17:39)
[2019-03-16] MEDS ORDERED: Enoxaparin Sodium 40 MG/0.4 ML SYRINGE SC SCH (21:00)
[2019-03-17] MEDS: Levothyroxine Sodium 112 MCG TAB PO SCH (05:32)
[2019-03-17] MEDS: HYDROcodone/Acetaminophen 5/325 mg Tablet PO PRN ×2 (05:32→11:42)
[2019-03-17 07:45] VITALS: BP 117/68; TEMP 98.3
[2019-03-17] MEDS: Multivitamin W/ Minerals 1 TAB PO SCH (09:24)
[2019-03-17] MEDS: Aspirin 81 mg Enteric Coated Tablet PO SCH (09:24)
[2019-03-17] MEDS: Ferrous Gluconate 324 MG TAB PO SCH (09:24)
[2019-03-17] MEDS: Senokot S 8.6-50 MG TAB PO SCH (09:25)
[2019-03-17] MEDS: Sodium Chloride 0.9% 1,000 ML IV SCH (12:37)
== END 2019-03-17 12:10 | disposition home or self-care (01) | DRG 470 ==
LOC: SJJU 03-14 09:29
PROVIDERS: ADMIT Orthopaedic Surgery; ATTEND Orthopaedic Surgery
PROC: 0SRB02A Replacement of Left Hip Joint with Metal on Polyethylene Synthetic Substitute, Uncemented, Open Approach (ICD-10-PCS; principal; 2019-03-14)
DX: M16.12 Unilateral primary osteoarthritis, left hip (principal); E03.9 Hypothyroidism, unspecified; M81.0 Age-related osteoporosis without current pathological fracture; N18.2 Chronic kidney disease, stage 2 (mild); Z28.21 Immunization not carried out because of patient refusal
CPT/HCPCS: 36415; 85027; J0690; J1650; J1885; J2250; J2370; J2405; J2550; J3010; J3370; J3490

== ENCOUNTER 2020-02-01 08:21 | Outpatient (CLI) | payer MEDICARE ==
[2020-02-01 16:21] LABS: #Basophils 0.1 thou/uL (0.0-0.2); #Eosinphils 0.2 thou/uL (0.0-0.7); #Lymphocytes 2.3 thou/uL (1.20-3.40); #Monocytes 0.6 thou/uL (0.11-0.59); #Neutrophils 5.5 thou/uL (1.40-6.50); %Monocytes 6.9 % (0.0-10.0); %Neutrophils 63.3 % (42.0-75.0); Hemoglobin 14.2 g/dL (12.0-16.0); Mean Corpuscular Hemoglobin 31.6 pg (27.0-31.0); Mean Corpuscular Volume 95.6 fL (78.0-98.0); Mean Platelet Volume 7.5 fL (7.4-10.4); Platelet Count 288 thou/uL (130-400); RBC Distribution Width 11.8 % (11.5-14.5); White Blood Cell (WBC) Count 8.6 thou/uL (4.8-10.8)
[2020-02-01 16:25] LABS: INR-International Normal Ratio 0.9; Prothrombin Time 12.2 sec (12.0-14.7)
[2020-02-01 16:34] LABS: Anion Gap 12 mmol/L (10-20); BUN (Urea Nitrogen) 17 mg/dL (9.8-20.1); Calc. Creatinine Clearance 0 mL/min (70-130); Calcium 9.1 mg/dL (7.8-10.44); Carbon Dioxide 25 mmol/L (23-31); Chloride 104 mmol/L (98-107); Estimated GFR-MDRD 66; Glucose 129 mg/dL (83-110); Potassium 4.1 mmol/L (3.5-5.1); Sodium 137 mmol/L (136-145)
[2020-02-02 13:49] LABS: SARS-CoV-2 MS2 Positive; SARS-CoV-2 N Gene Negative; SARS-CoV-2 S Gene Negative; SARS-CoV-2 by NAA Not Detected (NotDetected); SARS-CoV-2 orf1ab Negative
== END 2020-02-01 08:22 | disposition home or self-care (01) ==
LOC: LABBT 08:21
PROVIDERS: ATTEND Orthopaedic Surgery
DX: Z01.812 Encounter for preprocedural laboratory examination (principal); Z20.828 Contact with and (suspected) exposure to other viral communicable diseases; M17.12 Unilateral primary osteoarthritis, left knee
CPT/HCPCS: 80048; 85025; 85610; U0003; 87635

== ENCOUNTER 2020-02-01 13:30 | Inpatient (IN) | payer MEDICARE ==
[2020-02-01 10:02] VITALS: BMI 29.5
[2020-02-06 07:03] LABS: Bacteria/HPF None Seen HPF (None Seen); Bilirubin Negative (Negative); Blood, Urine Negative (Negative); Clarity Clear (Clear); Glucose, Urine (Dipstick) Normal (Negative); Ketone, Urine Negative (Negative); Leukocyte 75 Leu/uL (Negative); Nitrite Negative (Negative); Protein, Urine (Dipstick) Negative (Neg-Trace); RBC/HPF 0-3 HPF (0-3); Specific Gravity, Urine 1.014 (1.002-1.036); Squamous Epithelial 0-3 HPF (0-3); Urobilinogen Normal mg/dL (Less than 2)
[2020-02-06] MEDS ORDERED: Tranexamic Acid 1,000 MG/10 ML VIAL ONE ×2 (07:03→09:56)
[2020-02-06] MEDS ORDERED: Sodium Chloride 0.9% 100 ML ONE (07:03)
[2020-02-06] MEDS ORDERED: Vancomycin 1 GM/200 ML BAG ONE (07:06)
[2020-02-06] MEDS ORDERED: Promethazine HCl 25 MG/ML VIAL IM PRN ×3 (07:09→09:24)
[2020-02-06] MEDS ORDERED: HYDROcodone/Acetaminophen 10/325 mg Tablet PO PRN ×2 (07:09→08:14)
[2020-02-06] MEDS ORDERED: Ondansetron PF 4 MG/2 ML Vial IVP PRN (07:09)
[2020-02-06] MEDS ORDERED: Zolpidem Tartrate 5 MG TAB PO PRN ×2 (07:09→08:14)
[2020-02-06] MEDS ORDERED: diphenhydrAMINE 25 MG CAP PO PRN (07:09)
[2020-02-06] MEDS ORDERED: Lidocaine 1% (PF) 30 ML VIAL ONE (07:24)
[2020-02-06] MEDS ORDERED: Midazolam HCl 2 mg/2 ml Vial ONE (07:24)
[2020-02-06] MEDS ORDERED: Fentanyl 100 MCG/2 ML VIAL ONE ×3 (07:24→08:53)
[2020-02-06] MEDS ORDERED: traMADol HCl 50 MG TAB PO PRN (08:14)
[2020-02-06] MEDS ORDERED: Fentanyl 100 MCG/2 ML VIAL IV PRN (08:15)
[2020-02-06] MEDS ORDERED: Ropivacaine 0.2% HCl/PF (40 MG/20 ML VIAL) ONE (09:15)
[2020-02-06] MEDS ORDERED: Dexamethasone 20 MG/5 ML VIAL ONE (09:15)
[2020-02-06] MEDS ORDERED: Ondansetron PF 4 MG/2 ML Vial ONE (09:15)
[2020-02-06] MEDS ORDERED: PROPOFOL 200 MG/20 ML VIAL ONE (09:15)
[2020-02-06] MEDS ORDERED: Bupivacaine HCl 0.5%/Epinephrine 1:200,000/PF 30 ml Vial ONE (09:15)
[2020-02-06] MEDS ORDERED: Lidocaine 1% PF 5 ML VIAL ONE (09:15)
[2020-02-06] MEDS ORDERED: Promethazine HCl 25 MG/ML VIAL SLOW IVP PRN (09:24)
[2020-02-06] MEDS ORDERED: PACU-Morphine 4MG/ML VIAL SLOW IVP PRN (09:24)
[2020-02-06] MEDS: Multivitamin W/ Minerals 1 TAB PO SCH (12:51)
[2020-02-06] MEDS: Aspirin 81 mg Enteric Coated Tablet PO SCH ×2 (12:51→20:33)
[2020-02-06] MEDS: Ferrous Gluconate 324 MG TAB PO SCH ×2 (12:51→20:33)
[2020-02-06] MEDS: Senokot S 8.6-50 MG TAB PO SCH ×2 (12:52→20:33)
[2020-02-06] MEDS: Ketorolac Tromethamine 30 MG/ML VIAL IVP SCH ×3 (12:52→23:22)
[2020-02-06] MEDS: Levothyroxine Sodium 112 MCG TAB PO SCH (12:56)
[2020-02-06] MEDS: Sodium Chloride 0.9% 1,000 ML IV SCH ×2 (12:58→18:18)
[2020-02-06] MEDS ORDERED: Ketorolac Tromethamine 30 MG/ML VIAL IM SCH (14:00)
[2020-02-06] MEDS: CEFAZOLIN 2 GM in Premix Bag 1 BAG IVPB SCH ×2 (14:45→23:21)
--- NOTE | 2020-02-06 16:00 | RAD ---
Left knee 2 views HISTORY: Knee replacement. FINDINGS: Metallic prosthesis in place. No hilda-hardware lucency. Soft tissue gas from recent surgery . Old healed proximal fibular shaft fracture evident. Osseous structures are demineralized. IMPRESSION : Left knee prosthesis in good radiographic position.
[2020-02-06] MEDS: Ondansetron PF 4 MG/2 ML Vial IVP PRN (17:12)
[2020-02-06] MEDS: Acetaminophen 325 MG TAB PO PRN (20:33)
--- NOTE | 2020-02-06 22:20 | EKG ---
Test Reason : PREOP Blood Pressure : / mmHG Vent. Rate : 086 BPM Atrial Rate : 086 BPM P-R Int : 148 ms QRS Dur : 074 ms QT Int : 374 ms P-R-T Axes : 070 037 037 degrees QTc Int : 447 ms Normal sinus rhythm Normal ECG No previous ECGs available Confirmed by Irma QUEVEDO ([id number]) on 02/06/2020 10:20:39 PM Referred By: DELIA Confirmed By:Irma QUEVEDO
[2020-02-06] MEDS ORDERED: Calcium Carbonate 500 MG ChewTAB PO PRN (23:43)
[2020-02-06] MEDS ORDERED: Calcium Carbonate 500 MG ChewTAB PO SCH (23:45)
[2020-02-07] MEDS: Sodium Chloride 0.9% 1,000 ML IV SCH ×3 (03:09→19:23)
[2020-02-07 05:12] LABS: Hemoglobin 12.8 g/dL (12.0-16.0); Mean Corpuscular Hemoglobin 32.1 pg (27.0-31.0); Platelet Count 210 thou/uL (130-400); RBC Distribution Width 11.6 % (11.5-14.5); Red Blood Cell (RBC) Count 3.99 mill/uL (4.20-5.40); White Blood Cell (WBC) Count 10.9 thou/uL (4.8-10.8)
[2020-02-07] MEDS: Acetaminophen 325 MG TAB PO PRN (05:45)
[2020-02-07] MEDS: Ketorolac Tromethamine 30 MG/ML VIAL IVP SCH ×4 (05:46→18:50)
[2020-02-07] MEDS: Levothyroxine Sodium 112 MCG TAB PO SCH (05:46)
--- NOTE | 2020-02-07 09:28 | OP ---
DATE OF PROCEDURE: 02/06/2020 PREOPERATIVE DIAGNOSIS: Degenerative joint disease, left knee. POSTOPERATIVE DIAGNOSIS: Degenerative joint disease, left knee. CALL OR CONTACT [facility] TEAM LEADER: Dav Pinto PA-C BLOOD LOSS: Minimal. SPECIMENS: None. DRAINS: None. COMPLICATIONS: None. IMPLANTS USED: Evarts Triathlon 4 femur, 4 tibia, 9 mm CS X3 polyethylene and A29 patella. PROCEDURE IN DETAIL: After informed consent was obtained in the preoperative holding area, the patient was taken to the operative suite where general anesthesia was induced. Once adequate level of general anesthesia was obtained, the patient was positioned and a well-padded tourniquet was placed around the left proximal thigh. The left lower extremity was then prepped and draped in the usual sterile fashion. Prior to exsanguination, a time-out was called and all members of the surgical team agreed upon site, surgeon, and patient. The extremity was then exsanguinated and the tourniquet was raised. A midline longitudinal incision was then made directly over the patella extending 2 fingerbreadths above the superior pole of the patella and 2 fingerbreadths inferior to the inferior patellar pole of the patella. Deeper subcutaneous layers were dissected sharply and local bleeding was controlled with Bovie electrocautery. A quad tendon longitudinal split was then made sharply and a median parapatellar arthrotomy was carried out both sharp and with Bovie electrocautery, carried down to 1 fingerbreadth medial to the tibial tubercle. The knee was then placed into flexion and the patella was everted nicely, and a copious fat pad ectomy was performed allowing for greater exposure of the tibia. The computer-assisted distal femoral fiducial was then placed and pinned firmly, and the distal femoral cutting guide was pinned firmly into place. The oscillating saw was then used to remove the appropriate amount of bone. The 4-in-1 cutting block was then placed on the distal femur and the oscillating saw was used to remove the appropriate amount of bone off the anterior, posterior, and chamfer cuts. After completion of bone cuts, the anterior cruciate ligament was resected sharply and the posterior cruciate ligament retractor was placed and the tibia was subluxed for better exposure. Partial meniscectomies were carried out, and the tibial computer-assisted fiducial was pinned, and the cutting guide was placed. Oscillating saw was then used to remove the bone, with Hohmann retractors used to take care and protect the collateral ligaments. After the tibial resection was performed, a laminar napper runner was placed in between the freshened bone cuts. The knee placed at 90 degrees and further bilateral meniscectomies were carried out, and the curved osteotome and curettage were used to remove any excess bone spurs in the posterior compartment. The trial femoral component, tibial baseplate were placed with the appropriate polyethylene trial insert with an appropriate polyethylene spacer and patellar button. The knee was taken through full range of motion with flexion and extension from 0 to 90 degrees and patellar broach squarely in the trochlea without any squinting or subluxation noted. The knee was also stable to varus and valgus stressing at 0, 15, 45, and 90 degrees of flexion. The drawer was negative. All trial components were then removed and the keel punch was used to provide the appropriate defect in the tibia with a mallet. The freshened bone cuts were copiously irrigated with pulsatile lavage of about 1.5 L to remove all excess debris. The freshened bone cuts were then dried with suction and lap sponge. The knee was placed in flexion and retractors were placed to provide access to all bone cuts. Tobramycin-impregnated methyl methacrylate cement was then placed on the freshened bone cuts and implants which were malleted firmly into place. Curettage and [place] elevators were used to remove any excess bone cement. The knee was placed into full extension and the patellar button was placed under compression, and the cement was allowed to cure. Once completed, the components were again taken through full range of motion and copious irrigation of the knee was carried out with another liter of normal saline. All components were inspected fully with full range of motion and varus and valgus stressing. There was no laxity noted and full extension was observed clinically. Primary closure was accomplished with #2 interrupted Vicryl stitch of the arthrotomy defect. This was oversewn with a #2 running Quill barbed stitch. The gravitational platelet system was then injected into the arthrotomy prior to closure. The subcutaneous layer was then closed with a running 0 barbed Monocryl stitch and skin closure accomplished with a running subcuticular 3-0 Monocryl barbed Quill stitch and augmented with cement on the skin. Tourniquet was lowered. Good spontaneous return of distal pulses was noted clinically and a sterile dressing was applied to the incision. The procedure was terminated without any complications. The patient was awakened in the operative suite and the was removed, and the patient was taken to the recovery room in stable condition. Job ID: [id number]
[2020-02-07] MEDS: Multivitamin W/ Minerals 1 TAB PO SCH (09:36)
[2020-02-07] MEDS: Senokot S 8.6-50 MG TAB PO SCH ×2 (09:36→19:21)
[2020-02-07] MEDS: Aspirin 81 mg Enteric Coated Tablet PO SCH ×2 (09:36→19:21)
[2020-02-07] MEDS: Ferrous Gluconate 324 MG TAB PO SCH ×2 (09:36→19:21)
[2020-02-07] MEDS: Ropivacaine HCl/PF 250 ML in Premix Bag 1 BAG NERVE BLCK SCH ×2 (10:32→11:06)
--- NOTE | 2020-02-07 10:35 | PRG ---
DATE OF SERVICE: 02/07/2020 SUBJECTIVE: Mohini is an 84-year-old female, postop day 1 from left total knee arthroplasty. She is doing very well. She has no complaints and she is comfortable. OBJECTIVE: VITAL SIGNS: Temperature 97.8, pulse 89, respiratory rate 18 and nonlabored, blood pressure is 146/73. GENERA: She is alert and oriented to person, place, time, and situation. Responsive and appropriate with examiner. Conversive and pleasant. EXTREMITIES: Incision is clean. No strike through. No erythema. She is neurovascularly intact in the left lower extremity. LABORATORY DATA: Hemoglobin and hematocrit 12.8 and 40.0. IMPRESSION: An 84-year-old female, postop day 1 left total knee arthroplasty, doing well. PLAN: Continue current care. Expected date of discharge will be Wednesday to home. We will continue to follow. Job ID: [id number]
[2020-02-07] MEDS: Ondansetron PF 4 MG/2 ML Vial IVP PRN ×2 (11:05→18:52)
[2020-02-07] MEDS: HYDROcodone/Acetaminophen 10/325 mg Tablet PO PRN ×2 (14:58→18:51)
[2020-02-08] MEDS: Ondansetron PF 4 MG/2 ML Vial IVP PRN ×2 (00:33→10:15)
[2020-02-08] MEDS: Ketorolac Tromethamine 30 MG/ML VIAL IVP SCH ×2 (00:33→05:34)
[2020-02-08] MEDS ORDERED: Bisacodyl 10 MG SUPP PR PRN (07:51)
--- NOTE | 2020-02-08 08:24 | PRG ---
DATE OF SERVICE: 02/08/2020 SUBJECTIVE: Mohini is an 84-year-old female, postop day 2 from a left total knee arthroplasty. Yesterday, she was doing relatively well in terms of the milestones, but over the last 24 hours, she developed some nausea and vomiting, and she has yet to have a bowel movement. Symptoms are most notable after she takes her medications and/or eats. She has had about 4 to 5 episodes of vomiting with productive emesis. She denies any discomfort or abdominal pain, but does admit to having some gas, but no bowel movements yet. OBJECTIVE: VITAL SIGNS: Temperature 98.5, pulse 96, respiratory rate 16, and blood pressure 147/70. GENERAL: She is alert and oriented to person, place, time, and situation. Responsive and appropriate with examiner. EXTREMITIES: Her incision is clean. No malrotation or shortening. No erythema and she is neurovascularly intact in the left lower extremity. ABDOMEN: Demonstrates tympany to percussion. She is full. Bowel sounds are present and normoactive, but little discomfort is noted diffusely with palpation. No point tenderness or peritoneal findings are identified. LABORATORY DATA: Hemoglobin and hematocrit 12.8 and 40.0 as of yesterday. IMPRESSION: 1. Suspect small ileus, probably the culprit for behind her nausea. 2. Status post left total knee arthroplasty postop day 2, otherwise doing relatively well. PLAN: 1. I will go and switch her to inpatient status due to the nausea and inability to keep food down. 2. Continue with Zofran. Encourage thin liquid diet. 3. We will give her Dulcolax suppository from below, hopefully have some bowel production. Continue to follow. Expected date of discharge to be tomorrow. Job ID: [id number]
[2020-02-08] MEDS: HYDROcodone/Acetaminophen 10/325 mg Tablet PO PRN (08:37)
[2020-02-08] MEDS: Senokot S 8.6-50 MG TAB PO SCH ×2 (08:38→20:04)
[2020-02-08] MEDS: Ferrous Gluconate 324 MG TAB PO SCH ×2 (08:38→20:04)
[2020-02-08] MEDS: Multivitamin W/ Minerals 1 TAB PO SCH (08:38)
[2020-02-08] MEDS: Aspirin 81 mg Enteric Coated Tablet PO SCH ×2 (08:38→20:04)
[2020-02-08] MEDS: Levothyroxine Sodium 112 MCG TAB PO SCH (08:44)
[2020-02-08] MEDS: Sodium Chloride 0.9% 1,000 ML IV SCH ×2 (10:19→19:30)
[2020-02-08] MEDS ORDERED: Sodium Chloride 0.9% 500 ML IV SCH (11:30)
[2020-02-08] MEDS: traMADol HCl 50 MG TAB PO PRN ×2 (14:05→20:04)
[2020-02-09] MEDS: traMADol HCl 50 MG TAB PO PRN (02:47)
[2020-02-09] MEDS: Sodium Chloride 0.9% 1,000 ML IV SCH (06:39)
[2020-02-09] MEDS: Levothyroxine Sodium 112 MCG TAB PO SCH (07:13)
[2020-02-09] MEDS: Ferrous Gluconate 324 MG TAB PO SCH (09:19)
[2020-02-09] MEDS: Aspirin 81 mg Enteric Coated Tablet PO SCH (09:19)
[2020-02-09] MEDS: Multivitamin W/ Minerals 1 TAB PO SCH (09:19)
[2020-02-09] MEDS: Senokot S 8.6-50 MG TAB PO SCH (09:20)
[2020-02-09 12:34] VITALS: TEMP 97.8
[2020-02-09 12:35] VITALS: BP 138/82
== END 2020-02-09 12:55 | disposition home or self-care (01) | DRG 470 ==
LOC: SJJU 02-06 06:24
PROVIDERS: ADMIT Orthopaedic Surgery; ATTEND Orthopaedic Surgery
PROC: 0SRD0J9 Replacement of Left Knee Joint with Synthetic Substitute, Cemented, Open Approach (ICD-10-PCS; principal; 2020-02-06)
DX: M17.12 Unilateral primary osteoarthritis, left knee (principal); K56.7 Ileus, unspecified; J30.2 Other seasonal allergic rhinitis; E03.9 Hypothyroidism, unspecified; E66.9 Obesity, unspecified; Z68.29 Body mass index [BMI] 29.0-29.9, adult; Z79.890 Hormone replacement therapy; Z79.899 Other long term (current) drug therapy
CPT/HCPCS: 36415; 81001; 85027; 93005; 93010; C1713; C1776; J0670; J0690; J1100; J1885; J2001; J2250; J2405; J2704; J2795; J3010; J3370; J3490